=== PATIENT | female | born 1990 | race African-American/Black ===

== ENCOUNTER 2019-06-23 08:42 | Emergency (ER) | payer BC, MEDICAID ==
[~2019-06-23] VITALS: Ht 167.6 cm; Wt 97.0 kg
[2019-06-23 13:31] VITALS: BP 135/87
== END 2019-06-23 13:35 | disposition home or self-care (01) ==
LOC: ER 08:42
DX: K64.8 Other hemorrhoids (principal); I10 Essential (primary) hypertension; F32.9 Major depressive disorder, single episode, unspecified
CPT/HCPCS: 99281

== ENCOUNTER 2020-01-15 10:45 | Emergency (ER) | payer MEDICAID ==
[~2020-01-15] VITALS: Ht 162.6 cm; Wt 80.0 kg
[2020-01-15 10:52] VITALS: BP 122/88
== END 2020-01-15 12:22 | disposition home or self-care (01) ==
LOC: ER 10:45
DX: B35.4 Tinea corporis (principal)
CPT/HCPCS: 99281; 99283

== ENCOUNTER 2021-02-04 09:15 | Emergency (ER) | payer MEDICAID ==
[~2021-02-04] VITALS: Ht 167.6 cm; Wt 80.0 kg
[2021-02-04] MEDS ORDERED: TOPUD MT (10:21)
[2021-02-04] MEDS ORDERED: TETANUS, DIPHTHERIA, PERTUSSIS VAC/PF 0.5ML (>7YR OLD) IM ONE (10:30)
[2021-02-04 10:51] VITALS: BP 120/78
== END 2021-02-04 10:51 | disposition home or self-care (01) ==
LOC: ER 09:15
DX: S90.822A Blister (nonthermal), left foot, initial encounter (principal); S90.821A Blister (nonthermal), right foot, initial encounter; I10 Essential (primary) hypertension; X58.XXXA Exposure to other specified factors, initial encounter; Y93.89 Activity, other specified; Y92.89 Other specified places as the place of occurrence of the external cause; Y99.8 Other external cause status
CPT/HCPCS: 81025; 90471; 90715; 99283

== ENCOUNTER 2021-03-21 09:02 | Emergency (ER) | payer MEDICAID ==
[~2021-03-21] VITALS: Ht 167.6 cm; Wt 86.0 kg
[~2021-03-21 09:02] MED LIST: TOPUD MT
[2021-03-21 09:07] VITALS: BP 147/104
[2021-03-21] MEDS ORDERED: IBUPROFEN 600MG TABLET PO ONE (09:45)
[2021-03-21] MEDS ORDERED: LIDOCAINE HCL/PF 1% 10 MG/ML 5ML VIAL INFIL ONE (09:45)
[2021-03-21] MEDS ORDERED: BACITRACIN ZINC OINT UDPKT TOP ONE (09:45)
[2021-03-21] MEDS ORDERED: CEPH250C2 MT (09:59)
[2021-03-21] MEDS ORDERED: P20 MT (09:59)
[2021-03-21] MEDS ORDERED: TC025C15 TP (09:59)
== END 2021-03-21 10:59 | disposition home or self-care (01) ==
LOC: ER 09:02
DX: L21.9 Seborrheic dermatitis, unspecified (principal); I10 Essential (primary) hypertension; F41.9 Anxiety disorder, unspecified; F32.A Depression, unspecified
CPT/HCPCS: 26010; 81025; 99284; J3490

== ENCOUNTER 2021-03-23 09:52 | Emergency (ER) | payer MEDICAID ==
[~2021-03-23] VITALS: Ht 165.1 cm; Wt 89.0 kg
[~2021-03-23 09:52] MED LIST changes: +CEPH250C2 MT; +P20 MT; +TC025C15 TP
[2021-03-23 10:11] VITALS: BP 151/95
== END 2021-03-23 11:17 | disposition home or self-care (01) ==
LOC: ER 09:52
DX: R21 Rash and other nonspecific skin eruption (principal); F41.9 Anxiety disorder, unspecified; F32.9 Major depressive disorder, single episode, unspecified; I10 Essential (primary) hypertension
CPT/HCPCS: 99281; A4315